=== PATIENT | female | born 1950 | race Caucasian/White ===

== ENCOUNTER 2019-10-10 21:55 | Emergency (ER) | payer MEDICAID, MEDICARE ==
[2019-10-10] MEDS ORDERED: Ipratropium 0.5MG/2.5ML NEB* 0.5 MG/2.5 ML NEB.SOLN INH ONE ×2 (22:06→22:51)
[2019-10-10] MEDS ORDERED: Albuterol 2.5 MG/3 ML NEB.SOL* (0.083%) INH ONE ×2 (22:06→22:51)
[2019-10-10 22:07] VITALS: BP 151/98
--- NOTE | 2019-10-10 22:12 | UC ---
Respiratory Complaint HPI - HPI Summary HPI Summary: The patient is a 69-year-old female that had a cold about a week ago. Since then she has been wheezing. She has been using her rescue inhaler. He wheezing has gotten markedly worse over the past 48 hours. She has been using her rescue inhaler or frequently than she should. She denies any chest pain. She has some shortness of breath. She denies any fever or chills. - History of Current Complaint Stated Complaint: asthma Time Seen by Provider: 10/10/19 22:01 Hx Obtained From: Patient Onset/Duration: Gradual Onset, Lasting Days Timing: Constant Severity Initially: Mild Severity Currently: Moderate Pain Intensity: 0 Pain Scale Used: 0-10 Numeric Character: Cough: Nonproductive Aggravating Factors: Recumbent Position Alleviating Factors: Bronchodilator Associated Signs And Symptoms: Positive: Wheezing - Allergies/Home Medications Allergies/Adverse Reactions: Allergies Allergy/AdvReac Type Severity Reaction Status Date / Time No Known Allergies Allergy Verified 10/10/19 22:03 Home Medications: Home Medications Levothyroxine TAB* [Synthroid TAB*] 100 mcg PO DAILY 10/10/19 [History Confirmed 10/10/19] Montelukast Sodium TAB* [Singulair TAB*] 10 mg PO DAILY 10/10/19 [History Confirmed 10/10/19] SUMAtriptan SQ* [Imitrex SQ*] 6 mg SUBCUT SEE INSTRUCTIONS 10/10/19 [History Confirmed 10/10/19] Steroid Inhaler 10/10/19 [History] PMH/Surg Hx/FS Hx/Imm Hx Previously Healthy: Yes Endocrine History: Thyroid Disease Respiratory History: Asthma, Bronchitis Review of Systems All Other Systems Reviewed And Are Negative: Yes Constitutional: Positive: Negative Skin: Positive: Negative Eyes: Positive: Negative ENT: Positive: Negative Respiratory: Positive: Shortness Of Breath, Cough, Other - wheezing Cardiovascular: Positive: Negative Gastrointestinal: Positive: Negative Genitourinary: Positive: Negative Motor: Positive: Negative Neurovascular: Positive: Negative Musculoskeletal: Positive: Negative Neurological/Mental Status: Positive: Negative Psychological: Positive: Negative Physical Exam Triage Information Reviewed: Yes Appearance: Well-Appearing, No Pain Distress, Well-Nourished Vital Signs: noted and stable Vital Signs Reviewed: Yes Eyes: Positive: Conjunctiva Clear ENT: Positive: Hearing grossly normal, Pharynx normal, TMs normal, Uvula midline. Negative: Nasal congestion, Nasal drainage, Tonsillar swelling, Tonsillar exudate, Trismus, Hoarse voice Neck: Positive: Supple, Nontender, No Lymphadenopathy Respiratory: Positive: No respiratory distress, No accessory muscle use, Wheezing Cardiovascular: Positive: RRR, No Murmur, Tachycardia Abdomen Description: Positive: Nontender Musculoskeletal: Positive: ROM Intact, No Edema Neurological: Positive: Alert Psychological Exam: Normal Skin Exam: Normal Re-Evaluation - Re-Evaluation First Eval Re-Evaluation Time: 22:50 Change: Improved - feels improved/still wheezing Second Eval Re-Evaluation Time: 23:14 Change: Improved - still wheezing but much improved Respiratory Course/Dx - Differential Dx/Diagnosis Provider Diagnosis: Acute asthma exacerbation Discharge ED - Sign-Out/Discharge Documenting (check all that apply): Patient Departure All imaging exams completed and their final reports reviewed: No Studies - Discharge Plan Condition: Stable Disposition: HOME Prescriptions: predniSONE 20 mg TAB [Deltasone 20 MG TAB*] 40 mg PO DAILY #6 tab Patient Education Materials: Bronchospasm (ED) Referrals: Jovani Espinoza MD [Primary Care Provider] - 3 Days (recheck this week) Additional Instructions: use your rescue inhaler as directed - Billing Disposition and Condition Condition: STABLE Disposition: Home
== END 2019-10-10 23:14 | disposition home or self-care (01) ==
LOC: UCEAST 21:55
DX: J45.901 Unspecified asthma with (acute) exacerbation (principal); E07.9 Disorder of thyroid, unspecified; Z79.890 Hormone replacement therapy
CPT/HCPCS: 99213; G0463; J7512